=== PATIENT | female | born 1965 | race Two or more races ===

== ENCOUNTER → 2024-07-25 | Outpatient (CLI) | payer OTHER ==
--- NOTE | 2024-07-25 10:34 | HMCIMG ---
MR SHOULDER RIGHT WO HISTORY: Pain COMPARISON: None TECHNIQUE: MRI of the right shoulder was performed utilizing multiple pulse sequences in axial, coronal and sagittal planes. Patient was not given contrast through intravenous route. FINDINGS: Small amount of bone bruise is seen at the superolateral aspect of the humeral head. Hypertrophic degenerative changes are seen of the acromioclavicular joint. There is downward sloping of acromion in a medial to lateral direction encroaching upon the rotator cuff tendon and muscles. There is rotator cuff tendinosis. There are findings suspicious for computer-aided cuff tendon tear. Fluid is seen in the subacromial-subdeltoid posterior complex. Degenerative changes are seen. The glenoid labrum is intact. Bicipital tendon is seen within its groove. Tiny joint effusion is seen. IMPRESSION: 1. There is rotator cuff tendinosis. There are findings suspicious for computer-aided cuff tendon tear. Fluid is seen in the subacromial-subdeltoid posterior complex. Degenerative changes are seen.
== END | disposition home or self-care (01) ==
LOC: RAH 07:43
PROVIDERS: ATTEND Family Medicine
DX: S40.021A Contusion of right upper arm, initial encounter (principal); M19.011 Primary osteoarthritis, right shoulder; M25.411 Effusion, right shoulder; M75.101 Unspecified rotator cuff tear or rupture of right shoulder, not specified as traumatic; X58.XXXA Exposure to other specified factors, initial encounter; Y93.89 Activity, other specified; Y92.89 Other specified places as the place of occurrence of the external cause; Y99.8 Other external cause status
CPT/HCPCS: 73221

== ENCOUNTER → 2025-02-28 | Outpatient (CLI) | payer OTHER ==
--- NOTE | 2025-02-28 16:15 | HMCIMG ---
EXAM: MR left knee WITHOUT CONTRAST CLINICAL HISTORY: 59-year-old female with sprain and medial collateral ligament tear, moderate joint effusion, longitudinal tear, posterior horn meniscus with horizontal component of body. TECHNIQUE: Multiplanar multisequence magnetic resonance images were obtained WITHOUT contrast. CONTRAST: None COMPARISON: None FINDINGS: JOINTS: Moderate joint effusion. BONE: Subchondral cyst formation underlying the tibial spine. SOFT TISSUES: Grade 2 sprain of the medial collateral ligament. Longitudinal tear of the posterior horn of the meniscus with horizontal component of the body. IMPRESSION: 1. Grade 2 sprain of the medial collateral ligament. 2. Longitudinal tear of the posterior horn of the meniscus with a horizontal component of the body. 3. Moderate joint effusion. /[place]roy
== END | disposition home or self-care (01) ==
LOC: RAH 14:03
PROVIDERS: ATTEND Family Medicine
DX: S83.207A Unspecified tear of unspecified meniscus, current injury, left knee, initial encounter (principal); S83.412A Sprain of medial collateral ligament of left knee, initial encounter; M25.462 Effusion, left knee; M25.862 Other specified joint disorders, left knee; X58.XXXA Exposure to other specified factors, initial encounter; Y93.89 Activity, other specified; Y92.89 Other specified places as the place of occurrence of the external cause; Y99.8 Other external cause status
CPT/HCPCS: 73721